=== PATIENT | female | born 1975 | race Caucasian/White ===

== ENCOUNTER 2018-09-18 02:22 | Emergency (ER) | payer SELFPAY ==
[~2018-09-18] VITALS: Ht 162.6 cm; Wt 90.7 kg
--- NOTE | 2018-09-18 02:40 | NUR ---
Dr. Wright at bedside for MSE.
--- NOTE | 2018-09-18 02:50 | NUR ---
Xray at bedside.
[2018-09-18] MEDS ORDERED: VANCOMYCIN IV 200 ML ONE (03:11)
[2018-09-18] MEDS ORDERED: KETOROLAC TROMETHAMINE 30 MG INJ ONE (03:11)
[2018-09-18] MEDS ORDERED: CEFTRIAXONE 1 G VIAL ONE (03:11)
[2018-09-18] MEDS ORDERED: KETOROLAC TROMETHAMINE 30 MG INJ IVP ONE (03:15)
[2018-09-18] MEDS ORDERED: CEFTRIAXONE 1 G in IV DEXTROSE 5% 50 ML IV ONE (03:15)
[2018-09-18] MEDS ORDERED: VANCOMYCIN IV 1,000 MG in IV DEXTROSE 5% 250 ML IV ONE (03:15)
--- NOTE | 2018-09-18 03:18 | NUR ---
Patient ambulated with stable gait. Patient disheveled in appearance. A/Ox4. Speech clear, speaks in complete sentences. No neuro deficits noted. Denies any homelessness. Patient came in with c/o pain in left hand. Pain 10/10, pressure type pain. Opposition of fingers noted. Respiratory even and unlabored, no cough, no sob. No GI/ distress noted Patient in bed at lowest position, side rails upx2, call light within reach. Fall precautions implemented per protocol.
--- NOTE | 2018-09-18 03:21 | NUR ---
Patient in bed, IV ATB flowing patently, NAD
--- NOTE | 2018-09-18 06:20 | NUR ---
Patient discharged to home in stable conditon. Written and verbal after care instructions given. Patient verbalizes understanding of instructions. Patient ambulated with stable gait.
[2018-09-18 06:21] VITALS: BP 119/64
== END 2018-09-18 06:22 | disposition home or self-care (01) ==
LOC: ER 02:22
DX: S60.052A Contusion of left little finger without damage to nail, initial encounter (principal); L03.114 Cellulitis of left upper limb; Z88.8 Allergy status to other drugs, medicaments and biological substances; X58.XXXA Exposure to other specified factors, initial encounter; Y93.89 Activity, other specified; Y92.89 Other specified places as the place of occurrence of the external cause; Y99.8 Other external cause status
CPT/HCPCS: 73130; 96365; 96366; 96367; 96375; 99283; J0696; J1885; J3370; J7060; A4663

== ENCOUNTER 2018-09-23 00:17 | Emergency (ER) | payer SELFPAY ==
[~2018-09-23] VITALS: Ht 162.6 cm; Wt 63.5 kg
--- NOTE | 2018-09-23 01:45 | NUR ---
Pt. ambulated into ED w/ c/o R FA/wrist pain and R ankle pain x 2 days, A/Ox4, speaks in clear and complete sentences, RR even and clear, pt. is disheveled and dirty, states she is not homeless and does not need assistance finding [facility], extremeties appear edematous bilat. both upper and lower extremeties,
--- NOTE | 2018-09-23 01:53 | NUR ---
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
[2018-09-23] MEDS ORDERED: SULFAMETH/TRIMETH 800/160 MG TABLET ONE ×2 (03:23→03:29)
[2018-09-23] MEDS ORDERED: SULFAMETH/TRIMETH 800/160 MG TABLET PO ONE (03:30)
--- NOTE | 2018-09-23 03:36 | NUR ---
Patient discharged to home in stable conditon. Written and verbal after care instructions given. Patient verbalizes understanding of instructions. Pt. d/c w/ prescription per MD order, d/c papers signed, all belongings w/ pt., ID band removed, ambulated off unit w/ steady gait, NAD
== END 2018-09-23 03:40 | disposition home or self-care (01) ==
LOC: ER 00:21
DX: L03.114 Cellulitis of left upper limb (principal); L03.116 Cellulitis of left lower limb; Z88.8 Allergy status to other drugs, medicaments and biological substances
CPT/HCPCS: 73130; 73630; A4663

== ENCOUNTER 2018-10-06 22:06 | Emergency (ER) | payer SELFPAY ==
[~2018-10-06] VITALS: Ht 162.6 cm; Wt 115.7 kg
--- NOTE | 2018-10-06 22:43 | NUR ---
Dr. Caceres at bedside for MSE.
--- NOTE | 2018-10-06 23:18 | NUR ---
Patient discharged to home in stable conditon. Written and verbal after care instructions given. Patient verbalizes understanding of instructions. Pt denies being homeless, refuses to sign homeless discharge waiver. Pt ambulated out of ER with steady gait, no acute signs of distress, VSS, all belongings taken.
[2018-10-06 23:20] VITALS: BP 120/63
== END 2018-10-06 23:21 | disposition home or self-care (01) ==
LOC: ER 22:07
DX: R07.2 Precordial pain (principal); Z88.8 Allergy status to other drugs, medicaments and biological substances
CPT/HCPCS: A4663

== ENCOUNTER 2019-04-05 17:31 | Emergency (ER) | payer SELFPAY ==
[~2019-04-05] VITALS: Ht 157.5 cm; Wt 79.4 kg
[2019-04-05] MEDS ORDERED: AZITHROMYCIN 250 MG TABLET ONE (18:39)
[2019-04-05] MEDS ORDERED: AZITHROMYCIN 250 MG TABLET PO ONE (18:45)
--- NOTE | 2019-04-05 18:45 | NUR ---
PATIENT WAS SEEN BY MD. MEDICATION GIVEN ORDERED. DC, RX AND FOLLOW UP INSTRUCTIONS GIVEN AND EXPLAINED TO PATIENT WHO STATES SHE UNDERSTANDS ALL INSTRUCTIONS.
== END 2019-04-05 18:47 | disposition home or self-care (01) ==
LOC: ER 17:31
DX: J02.9 Acute pharyngitis, unspecified (principal); R50.9 Fever, unspecified; Z88.8 Allergy status to other drugs, medicaments and biological substances
CPT/HCPCS: A4663; Q0144